=== PATIENT | female | born 1965 | race Caucasian/White ===

== ENCOUNTER → 2020-07-23 12:46 | Outpatient (BNVA) | payer OTHER, SELFPAY | PROVIDERS: PCP Hospitalist; Visit Provider Student in an Organized Health Care Education/Training Program | DX: Z76.89 Persons encountering health services in other specified circumstances (principal) ==

== ENCOUNTER 2020-09-25 18:11 | Outpatient (REF) | payer OTHER, SELFPAY | END 2020-09-25 18:12 | disposition home or self-care (01) | LOC: HO.LNP 18:11 | PROVIDERS: Visit Provider Hospitalist | DX: R39.15 Urgency of urination (principal) | CPT/HCPCS: 87086 ==

== ENCOUNTER → 2021-03-25 07:42 | Outpatient (BNVA) | payer OTHER, SELFPAY | PROVIDERS: PCP Internal Medicine; Visit Provider Nurse Practitioner Family | DX: M25.562 Pain in left knee (principal); M79.7 Fibromyalgia | CPT/HCPCS: 99212 ==

== ENCOUNTER 2021-04-01 12:44 | Outpatient (REF) | payer OTHER, SELFPAY ==
--- NOTE | ~2021-04-01 | MM_ITS ---
EXAMINATION: MM SCREENING DIGITAL BREAST TOMOSYNTHESIS, BILATERAL CLINICAL INFORMATION: Screening. Asymptomatic. Mother with history of breast cancer at age of 3030 years old. The lifetime risk of breast cancer based on the Tyrer-Cuzick Model is 23.2%. Additional annual screening with breast MRI may be of benefit in women with a Score of 20% or greater. COMPARISON: Mammography: August 29, 2019 and studies dating back to November 28, 2010 TECHNIQUE: Digital breast tomosynthesis is performed in both the craniocaudal and mediolateral oblique views along with computer-aided detection (CAD). Synthesized 2D images are generated from the tomosynthesis. FINDINGS: There are scattered areas of fibroglandular density (ACR BI-RADS breast composition Category b). There are no significant masses, abnormal calcifications, or other abnormalities. MM/MM tomosynthesis screening BI IMPRESSION: There are no significant changes from prior study. ASSESSMENT: BI-RADS 1: Negative RECOMMENDATION: Routine annual mammography screening. This patient's information was entered into a reminder system with a target due date for their next mammogram.
== END 2021-04-01 12:45 | disposition home or self-care (01) ==
LOC: HO.MAMMO 12:44
PROVIDERS: Visit Provider Hospitalist
DX: Z12.31 Encounter for screening mammogram for malignant neoplasm of breast (principal)
CPT/HCPCS: 77063; 77067

== ENCOUNTER 2022-04-08 14:10 | Outpatient (REF) | payer OTHER, SELFPAY ==
--- NOTE | ~2022-04-08 | MM_ITS ---
EXAMINATION: MM SCREENING DIGITAL BREAST TOMOSYNTHESIS, BILATERAL CLINICAL INFORMATION: Screening. Asymptomatic. Family history premenopausal breast cancer, mother. The lifetime risk of breast cancer based on the Tyrer-Cuzick Model is 23%. COMPARISON: Mammography: 04/01/2021, 08/29/2019, 08/23/2018 TECHNIQUE: Digital breast tomosynthesis is performed in both the craniocaudal and mediolateral oblique views along with computer-aided detection (CAD). Synthesized 2D images are generated from the tomosynthesis. FINDINGS: There are scattered areas of fibroglandular density (ACR BI-RADS breast composition Category b). There are no significant masses, abnormal calcifications, or other abnormalities. Parenchymal pattern is similar to prior studies. There is no developing density or architectural abnormality. The axilla and skin contours are unremarkable. No significant changes. MM/MM tomosynthesis screening BI IMPRESSION: No mammographic evidence of malignancy. ASSESSMENT: BI-RADS 1: Negative RECOMMENDATION: Routine annual mammography screening. This patient's information was entered into a reminder system with a target due date for their next mammogram.
== END 2022-04-08 14:11 | disposition home or self-care (01) ==
LOC: HO.MAMMO 14:10
PROVIDERS: PCP Hospitalist; Visit Provider Hospitalist
DX: Z12.31 Encounter for screening mammogram for malignant neoplasm of breast (principal)
CPT/HCPCS: 77063; 77067

== ENCOUNTER 2023-04-14 14:25 | Outpatient (REF) | payer OTHER, SELFPAY ==
--- NOTE | ~2023-04-14 | MM_ITS ---
EXAMINATION: MM SCREENING DIGITAL BREAST TOMOSYNTHESIS, BILATERAL CLINICAL INFORMATION: Screening. Asymptomatic. COMPARISON: Mammography: This study is compared with prior exams dating back to 2016. TECHNIQUE: Digital breast tomosynthesis is performed in both the craniocaudal and mediolateral oblique views along with computer-aided detection (CAD). Synthesized 2D images are generated from the tomosynthesis. FINDINGS: There are scattered areas of fibroglandular density (ACR BI-RADS breast composition Category b). There are no significant masses, abnormal calcifications, or other abnormalities. MM/MM tomosynthesis screening BI IMPRESSION: No mammographic evidence of malignancy. ASSESSMENT: BI-RADS BI-RADS 1 - Negative RECOMMENDATION: Routine annual mammography screening. 1 year F/U This examination should not preclude the clinical evaluation of a suspicious palpable abnormality. This patient's information was entered into a reminder system with a target due date for their next mammogram.
== END 2023-04-14 14:26 | disposition home or self-care (01) ==
LOC: HO.MAMMO 14:25
PROVIDERS: Visit Provider Hospitalist
DX: Z12.31 Encounter for screening mammogram for malignant neoplasm of breast (principal)
CPT/HCPCS: 77063; 77067

== ENCOUNTER → 2023-04-14 14:30 | Outpatient (BNV) | payer OTHER, SELFPAY | PROVIDERS: Visit Provider Radiology Diagnostic Radiology | DX: Z12.31 Encounter for screening mammogram for malignant neoplasm of breast (principal) | CPT/HCPCS: 77063; 77067 ==

== ENCOUNTER 2023-11-01 10:48 | Outpatient (AMB) | payer OTHER, SELFPAY ==
--- NOTE | 2023-11-01 10:57 | A.OFFPC_ITS ---
Vital Signs 11/01/23 11:05 Height 5 ft 11 in Weight 194 lb BMI 27.1 BP 112/68 Blood Pressure Location Rt brachial Position Sitting Respiration 14 Pulse 101 H Pulse Source Pulse Oximeter Temp 98.6 F Temp Source Oral Pulse Oximetry (%) 98 Oxygen Delivery Method Room Air Intake Visit Reasons: Annual PE SEYMOUR from Intake Note: Physical. Needs refill on albuterol sulfate 90 mcg and ibuprofen 600. 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 Reel Assembler Required: No Allergies codeine [CODEINE] Allergy (Intermediate, Verified 11/01/23 11:23) NAUSEA,VOMITING oxycodone [From PERCOCET] Allergy (Intermediate, Verified 11/01/23 11:23) NAUSEA,VOMITING acetaminophen [Percocet] Allergy (Mild, Verified 11/01/23 11:23) Stomach Upset Sulfa (Sulfonamide Antibiotics) [SULFA (SULFONAMIDE ANTIBIOTICS)] Allergy (Mild, Verified 11/01/23 11:23) NAUSEA & VOMITING, GI upset, vomiting Tobacco use date assessed: 11/01/23 Dental Screening Dental Screen Date: 11/01/23 Did you have a dental visit in the last 12 months?: No Did you have a dental problem in the last 6 months where you did not have access to dental care?: No Was dental information given to patient?: Patient has dentist HPI HPI Comments History of Present Illness Details 58-year-old female presents for transfer of care. Her former PCP is who is no longer with the practice. She has past medical history significant for asthma, fibromyalgia, neuropathy of hands and feet, anxiety, and depression. She notes that her anxiety and depression symptoms are moderately controlled. She reports history of psychotherapy at [facility] until 2 years ago when her therapist stopped working and went back to school. She was also followed by a psychiatrist at [facility] about 6-7 years ago. She notes that she has been picking the skin of both lower legs almost daily, for the past 2 years; she attributes this to stressful situations and notes meditation helps. Nondrinker, currently smokes 10 cigarettes daily, have been smoking a pack or less for the past 40 years, no recreational drug use She notes that she is up-to-date on the shingles and flu vaccines She states that her last mammogram was with [facility] [place] 03[place]2023: normal She notes that her her last pap smear test was over 5 years ago: normal. No h/o hysterectomy She states that her last colonoscopy was with [facility] gastroenterology about 2 years ago: normal [facility] Medical History Cholecystitis with cholelithiasis Fibromyalgia Perforated ulcer Smoker Family History (Updated 11/01/23 @ 11:03 by Ling Montgomery CMA) Father ETOHism CVD (cardiovascular disease) Substance abuse Mother Stroke Social History (Updated 11/01/23 @ 11:03 by Ling Montgomery CMA) Housing: House Alcohol intake: former Patient Tobacco Use Status: Current someday Tobacco user Tobacco use type: Cigarette Cigarettes Per Day: 5 Years Smoked: 20 e-Cigarette/Vaping Use: Never Used Second Hand Smoke Exposure: Yes service: No Current occupational status: employed 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 1. Little interest or pleasure in doing things: more than half the days 2. Feeling down, depressed, or hopeless: more than half the days 3. Trouble falling or staying asleep, or sleeping too much: several days 4. Feeling tired or having little energy: several days 5. Poor appetite or overeating: not at all 6. Feeling bad about yourself - or that you are a failure or have let yourself or your family down: not at all 7. Trouble concentrating on things, such as reading the newspaper or watching television: several days 8. Moving or speaking so slowly that other people could have noticed. Or the opposite - being so fidgety or restless that you have been moving around a lot more than usual: not at all 9. Thoughts that you would be better off or of hurting yourself in some way: not at all Total score: 7 Depression Screening Interpretation: Negative Depression Screening Done: Yes 53892 - PHQ-9 Billing: Yes Source: Developed by Drs. Cheo Mc, Alisha Ulloa, Reji Sanchez and colleagues, with an educational dewey from [employer]. Thrive Questionnaire Date Thrive assessed: 11/01/23 I am a: Patient What is your living situation today?: I have a steady place to live Within the past 12 months, did the food you bought not last and you didn't have the money to get more?: Never true Within the past 12 months, did you worry whether your food would run out before you got money to buy more?: Never true Do you have trouble paying for medicines?: No Do you have trouble getting transportation to medical appointments?: No Do you have trouble paying your heating and electricity bill?: No Do you have trouble taking care of your child, family member or friend?: No Do you have trouble with day-to-day activities such as bathing, preparing meals, shopping, managing finances, etc.?: No Are you currently unemployed and looking for a job?: No Are you interested in more education?: No Please select the resources that you would like help with: None Currently or been in a relationship where the following occur: no concerns reported THRIVE Score: 0 AUDIT C Alcohol Use Questionnaire (AUDIT-C) 1. How often do you have a drink containing alcohol?: Never 3. How often do you have six or more drinks on one occasion?: Never Total Score: 0 AMANDA-7 AMB Questionnaire AMANDA-7 Date AMANDA - 7 assessed: 11/01/23 Feeling nervous, anxious, or on edge: 1 = Several days Not being able to stop or control worryin = Several days Worrying too much about different things: 1 = Several days Trouble relaxin = Several days Being so restless that it is hard to sit still: 0 = Not at all Becoming easily annoyed or irritable: 0 = Not at all Feeling afraid as if something awful might happen: 1 = Several days Total AMANDA-7 score (0-4 normal; 5-9 mild; 10-14 moderate; 15-21 severe): 5 Source: Developed by Drs. Cheo Mc, Alisha Ulloa, Reji Sanchez and colleagues, with an educational dewey from [employer]. AMANDA-7 Assessment Billing AMANDA-7 Assessment Tool: AMANDA-7 Assessment 16241 ACT Questionnaire In the past 4 weeks, how much of the time did your asthma keep you from getting as much done at work, school or at home?: None of the time During the past 4 weeks, how often have you had shortness of breath?: 1-2 times a week During the past 4 weeks, how often did your asthma symptoms wake you up at night or earlier than usual in the morning?: Not at all During the past 4 weeks, how often have you had to use your rescue inhaler or nebulizer medication?: 1-2 times a week How would you rate your asthma control during the past 4 weeks?: Well controlled ACT Interpretation: Positive Score: 20 Review of Systems Const Details: Const Denies chills, Denies fatigue, Denies fever(s), Denies headache(s) and Denies weakness ENT Denies dizziness and Denies headache(s) Card Denies chest pain, Denies lightheadedness, Denies dyspnea and Denies other (Palpitations) Resp Denies cough, Denies dyspnea, Denies wheezing and Denies other ( shortness of breath) GI Denies abdominal pain, Denies melena, Denies hematochezia, Denies change in bowel habits, Denies dyspepsia and Denies nausea Denies hematuria and Denies dysuria Musc Denies abnormal gait, Denies myalgias, Denies arthralgias, Denies numbness and Denies tingling Skin/Breast Reports rash, Denies unusual bruising and Denies wounds Neuro Denies abnormal gait, Denies dizziness, Denies headache(s), Denies memory loss, Denies numbness, Denies Sensory deficit (Neuro), Denies tingling and Denies weakness Psych Denies anxiety, Denies depression, Denies memory loss Endo Denies cold intolerance, Denies fatigue, Denies heat intolerance, Denies polydipsia and Denies polyuria Aller/Immun Denies wheezing Physical exam (Primary Care) Vital Signs: Last Vital Signs Temp 98.6 F 11/01/23 11:05 Pulse 101 H 11/01/23 11:05 Resp 14 11/01/23 11:05 BP 112/68 11/01/23 11:05 Pulse Ox 98 11/01/23 11:05 Oxygen Delivery Method Room Air 11/01/23 11:05 BMI result Body Mass Index 27.1 Tobacco/Smoking Status: Tobacco use Status Tobacco use date assessed 11/01/23 11/01/23 11:08 Patient Tobacco Use Status Current someday Tobacco 11/01/23 11:08 Tobacco use type Cigarette 11/01/23 11:14 e-Cigarette/Vaping Use Never Used 11/01/23 11:08 PHQ-9: PHQ-9 Score PHQ-9: Total score 7 11/01/23 14:12 Depression Screening Interpretation: Negative Thrive Assessment: Date of Thrive Assessment Date Thrive assessed 11/01/23 11/01/23 11:11 Currently or been in a relationship where the following occur: no concerns reported Const Other: General: no acute distress and well developed Nutritional Appearance: well nourished Orientation/consciousness: patient oriented x3 HENMT Head: Yes normocephalic and Yes atraumatic Eyes General: appearance normal, both eyes and all related structures Pupils: Equal, round and reactive pupils present EOM: EOMs intact bilaterally Resp Effort & Inspection: normal respiratory effort Auscultation: clear to auscultation bilaterally Cardio Rate: regular rate Rhythm: regular rhythm Heart sounds: S1 normal heart sound present, S2 normal heart sound present, no gallops, no murmurs and no rubs GI Palpation (GI): No Abdominal aortic bruit present, Soft to palpation, nontender, No hepatosplenomegaly present and No Rebound tenderness present Auscultation: normal bowel sounds General: Yes no CVA tenderness Back/Spine/Pelvis Back: no CVA tenderness Cervical Spine: cervical ROM normal and No Cervical spine tenderness Thoracic/Lumbar Spine: thoraco-lumbar ROM normal, No pain with thoraco-lumbar ROM, No thoracic spinal tenderness and No lumbar spinal tenderness Extrem General: Yes normal to inspection, No edema and No calf tenderness Skin General: warm and dry. Normal skin color. Normal skin turgor Lesions: Old and new scabs to her entire bilateral lower legs Rashes: no rashes Trauma: no lacerations or abrasions Wounds: no wounds Nails: normal Neuro General: patient oriented x3, gait normal and no focal neuro deficit Cranial nerves: Yes Equal, round and reactive pupils present Cognition (Neuro): normal cognition Gait exam (Neuro): Normal gait present Sensory Exam: No Sensory deficit (Neuro) Psych Appearance: grossly normal Affect: normal affect Attitude: cooperative Thought process: Normal thought process present Assessment and Plan Assessment & Plan (1) Depression with anxiety: Code(s): F41.8 - Other specified anxiety disorders Plan: Reports moderately controlled anxiety and depression symptoms on current treatment PHQ-9 and AMANDA-7 scores revealed mild depression and anxiety Continue to take paroxetine and mirtazapine as prescribed Routine exercise encouraged She notes that she will call ENGINEERING WRITER to make an appointment to reconnect with a therapist and psychiatrist Follow-up in 1 month for an extended physical exam or return sooner with worsening or new symptoms Verbalized understanding and agreed with treatment plan (2) 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 Paroxetine may help with this condition Follow-up with worsening or new symptoms Verbalized understanding and agreed with treatment plan (3) Asthma: Code(s): J45.909 - Unspecified asthma, uncomplicated Qualifiers: Asthma complication type: uncomplicated Asthma persistence: intermittent Asthma severity: mild Qualified Code(s): J45.20 - Mild i ntermittent asthma, uncomplicated Plan: Well controlled asthma. ACT score is 20 Albuterol inhaler as prescribed Follow-up with symptoms or concerns Verbalized understanding and agreed with the plan (4) Fibromyalgia: Code(s): M79.7 - Fibromyalgia Plan: Continue to take gabapentin, albuterol, and tizanidine as prescribed Will discontinue cyclobenzaprine Follow-up with symptoms or concerns Verbalized understanding and agreed with the plan (5) Screening for lung cancer: Code(s): Z12.2 - Encounter for screening for malignant neoplasm of respiratory organs Plan: She currently smokes 10 cigarettes daily, have been smoking a pack or less for the past 40 years LDCT ordered (6) Pap smear for cervical cancer screening: Code(s): Z12.4 - Encounter for screening for malignant neoplasm of cervix Plan: She notes that her her last pap smear test was over 5 years ago: normal. No h/o hysterectomy Referred to [facility] business systems manager for a Pap smear test (7) Colon cancer screening: Code(s): Z12.11 - Encounter for screening for malignant neoplasm of colon Plan: She notes that her last colonoscopy was about 2 years ago from [facility] gastro[facility]. Unable to locate GI or colonoscopy record with [facility] or [facility]. Will inquire more about where she had her last colonoscopy at her next visit. Will refer to [facility] gastroenterology for a colonoscopy if low record cannot be found. Orders: Orders Complete Blood Count Auto Diff Today Z00.00 - Encounter for general adult medical examination without abnormal findings Comprehensive [place]. Panel Fast Today Z00.00 - Encounter for general adult medi delmy examination without abnormal findings Lipid Panel Today Z00.00 - Encounter for general adult medical examination without abnormal findings TSH reflex Free T4 Today Z00.00 - Encounter for general adult medical examination without abnormal findings UA CC w/rflx Micro + Cult Today Z00.00 - Encounter for general adult medical examination without abnormal findings Referrals SUSTAINABILITY CONSULTANT Referral Z12.4 - Encounter for screening for malignant neoplasm of cervix Medications: Refilled ibuprofen 600 mg PO BID PRN 60 tabs 3RF for pain tizanidine 4 mg PO BID PRN 60 tabs 2RF muscle spasticity M62.830 - Muscle spasm of back albuterol sulfate 90 mcg/actuation 2 puffs PO Q4H PRN 8.5 grams 6RF shortness of breath or wheezing 1 month J45.20 - Mild intermittent asthma, uncomplicated Discontinued cyclobenzaprine Discontinued Reason: Doctor's Order 10 mg PO TID PRN 90 tabs 1RF muscle spasm M62.830 - Muscle spasm of back Coding Level of Care Code Est Pt Level 4 (44791) Diagnoses Depression with anxiety F41.8 Dermatillomania F42.4 Mild intermittent asthma without complication J45.20 Asthma complication type: uncomplicated Asthma persistence: intermittent Asthma severity: mild Fibromyalgia M79.7 Screening for lung cancer Z12.2 Pap smear for cervical cancer screening Z12.4 Colon cancer screening Z12.11 Additional Codes AMANDA-7 Assessment Billing - MAANDA-7 Assessment Tool: AMANDA-7 Assessment 37226 ([id number])
[2023-11-01 11:05] VITALS: BP 112/68; PULSE 101; RESP 14; TEMP 37; O2SAT 98; BMI 27.1
== END 2023-11-01 11:59 | disposition home or self-care (01) ==
PROVIDERS: Visit Provider Nurse Practitioner Family
DX: J45.20 Mild intermittent asthma, uncomplicated (principal); F41.8 Other specified anxiety disorders; F42.4 Excoriation (skin-picking) disorder; M79.7 Fibromyalgia; Z12.2 Encounter for screening for malignant neoplasm of respiratory organs; Z12.11 Encounter for screening for malignant neoplasm of colon
CPT/HCPCS: 99214

== ENCOUNTER 2024-02-01 15:14 | Outpatient (REF) | payer OTHER, SELFPAY ==
[2024-02-03 16:58] LABS: HPV mRNA E6/E7 Not Detected (Not Detected)
== END 2024-02-01 15:15 | disposition home or self-care (01) ==
LOC: HO.LNP 15:14
PROVIDERS: Visit Provider Obstetrics & Gynecology
DX: Z01.419 Encounter for gynecological examination (general) (routine) without abnormal findings (principal); Z11.51 Encounter for screening for human papillomavirus (HPV)
CPT/HCPCS: 87624; 88175; 99386

== ENCOUNTER 2024-02-01 15:14 | Outpatient (AMB) | payer OTHER, SELFPAY ==
[2024-02-01 15:28] VITALS: BP 110/74; BMI 27.6
--- NOTE | 2024-02-01 15:28 | MHC.OFFVIS ---
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 No complaints. Last Pap/HPV ? Last Mammogram was BI-RADS 1 in 04/10 Last colonoscopy was in 10/03, the recommendation was to repeat in 10 years [facility] Medical History (Updated 02/01/24 @ 15:38 by Chester Mendenhall MD) Brain aneurysm Fibromyalgia Smoker Cholecystitis with cholelithiasis Perforated ulcer Surgical History (Updated 02/01/24 @ 15:30 by JANA Bell) History of bladder surgery Family History Father ETOHism CVD (cardiovascular disease) Substance abuse Mother Stroke Social History (Updated 02/01/24 @ 15:31 by JANA Bell) Housing: House Alcohol intake: former Patient Tobacco Use Status: Current someday Tobacco user Tobacco use type: Cigarette Cigarettes Per Day: 5 Years Smoked: 20 e-Cigarette/Vaping Use: Never Used Second Hand Smoke Exposure: Yes service: No Current occupational status: employed 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[employer] Current occupational exposures/hazards: No Sexually active: No Cognitive needs: No Hearing needs: No Vision needs: No Female Reproductive History Menstrual Menopause type: natural Total pregnancies: 4 Full term: 2 Number of Living Children: 2 Ab induced: 1 Ab spontaneous: 1 Review of Systems Const All systems reviewed & are unremarkable except as noted in HPI and below Card Reports as per HPI Resp Reports as per HPI GI Reports as per HPI and Reports no additional complaints Reports as per HPI Physical Exam Vital Signs: Last Vital Signs BP 110/74 02/01/24 15:28 BMI result Body Mass Index 27.6 Const General: cooperative, healthy appearing and comfortable Chest Chest palpation & inspection: normal inspection of the chest and normal palpation of entire chest wall Breast/axilla inspection: normal inspection of the breasts and normal inspection of the axillae Breast/axilla palpation: normal palpation of the breasts, normal palpation of the axillae and no axillary lymphadenopathy Resp Effort & Inspection: normal respiratory effort Auscultation: clear to auscultation bilaterally Percussion: percussion normal Cardio Palpation: normal PMI Rate: regular rate Rhythm: regular rhythm Heart sounds: no murmurs and no rubs Peripheral pulses: Peripheral pulses 2+ throughout GI Inspection: Yes normal to inspection Palpation (GI): Soft to palpation, nontender, no guarding, not rigid and No hepatosplenomegaly present Percussion: Yes normal to percussion Auscultation: normal bowel sounds Rectal Exam - Female: deferred General: Yes bladder normal to palpation External Female Exam: No lesion Speculum Exam - Vagina: normal appearance of the vagina, normal palpation, normal vaginal discharge and not erythematous Speculum Exam - Cervix: normal appearance of the cervix and normal palpation Bimanual exam- vagina & uterus: normal bimanual exam, normal palpation, uterine size normal, bladder normal to palpation, consistency normal and normal palpation Bimanual Exam- Adnexa, other: normal adnexae, no masses and no tenderness Assessment & Plan Assessment & Plan (1) Well woman exam: Code(s): Z01.419 - Encounter for gynecological examination (general) (routine) without abnormal findings Category: Medical Plan: Co testing done. Counseled the patient about the recommended dietary allowance of 1200 mg of Calcium & 600 IU of vitamin D. Mammogram ordered. The patient was instructed to perform monthly self-breast exams and schedule annual exam in a year. All questions answered and the patient verbalized understanding. Orders: Orders MM tomosynthesis screening BI Today Z12.31 - Encounter for screening mammogram for malignant neoplasm of breast Coding Level of Care Code New Pt Prev Care 40-64y(47166) Diagnoses Well woman exam Z01.419
== END 2024-02-01 16:26 | disposition home or self-care (01) ==
PROVIDERS: Visit Provider Obstetrics & Gynecology
DX: Z01.419 Encounter for gynecological examination (general) (routine) without abnormal findings (principal)
CPT/HCPCS: 99386